=== PATIENT | female | born 1985 | race Caucasian/White ===

== ENCOUNTER 2020-07-19 13:23 | Emergency (ER) | payer OTHER ==
[~2020-07-19] VITALS: Ht 162.6 cm; Wt 75.8 kg
[2020-07-19] MEDS ORDERED: LEVOFLOXACIN750 MG PO (13:40)
[2020-07-19 14:09] LABS: ABSOLUTE EOSINOPHILS 0.1 thou/uL (0.0-0.7); ABSOLUTE LYMPHOCYTES 2.3 thou/uL (0.8-5.3); ABSOLUTE MONOCYTES 1.1 thou/uL (0.0-1.2); ABSOLUTE NEUTROPHILS 10.8 thou/uL (1.6-8.1); BASOPHILS 0.3 %; EOSINOPHILS 0.9 %; HEMATOCRIT 31.6 % (37.0-47.0); HEMOGLOBIN 10.4 gm/dL (12.0-15.0); MCH 27.8 pg (26.0-34.0); MCV 84.2 fL (80.0-100.0); MONOCYTES 7.5 %; MPV 6.2 fl. (7.2-11.1); NUCLEATED RBCS 0 /100WBC; PLATELET COUNT* 834 thou/uL (150-400); POLYS 75.3 %; RBC 3.75 mil/uL (4.20-5.00); RDW-CV 16.5 % (10.5-14.5); WBC 14.3 thou/uL (4.0-11.0)
[2020-07-19 14:17] LABS: CALCIUM 8.6 mg/dL (8.5-10.1); CREATININE 0.7 mg/dL (0.6-1.3); POTASSIUM 3.8 mmol/L (3.5-5.1)
[2020-07-19 14:22] LABS: ALBUMIN 2.5 g/dL (3.4-5.0); TOTAL BILIRUBIN 0.3 mg/dL (<0.1-1.0); TOTAL PROTEIN 8.1 g/dL (6.4-8.2)
[2020-07-19 15:13] LABS: ESR (SEDRATE) 107 mm/hr (0-20)
[2020-07-19] MEDS ORDERED: DOXYCYCLINE 10100 M2 PO (15:17)
[2020-07-19 15:30] VITALS: BP 146/93
== END 2020-07-19 15:31 | disposition home or self-care (01) ==
LOC: M.ERS 13:23
PROVIDERS: Nurse Practitioner Psychiatric/Mental Health
DX: J06.9 Acute upper respiratory infection, unspecified (principal); Z20.828 Contact with and (suspected) exposure to other viral communicable diseases; D72.829 Elevated white blood cell count, unspecified; M25.471 Effusion, right ankle; R23.8 Other skin changes; M25.562 Pain in left knee; G40.909 Epilepsy, unspecified, not intractable, without status epilepticus; Z79.2 Long term (current) use of antibiotics; Z88.8 Allergy status to other drugs, medicaments and biological substances